=== PATIENT | male | born 1970 | race Caucasian/White ===

== ENCOUNTER 2018-02-19 19:51 | Emergency (ER) | payer SELFPAY ==
[~2018-02-19] VITALS: Ht 175.3 cm; Wt 139.4 kg
[2018-02-19 20:08] VITALS: BP 134/94
[2018-02-19 21:27] VITALS: BP 131/75
== END 2018-02-19 21:24 | disposition home or self-care (01) ==
LOC: MED 19:51
DX: M25.561 Pain in right knee (principal); M25.461 Effusion, right knee
CPT/HCPCS: 99283

== ENCOUNTER 2021-04-30 12:45 | Emergency (ER) | payer SELFPAY ==
[~2021-04-30] VITALS: Ht 175.3 cm; Wt 114.3 kg
[2021-04-30 14:05] VITALS: BP 144/64
[2021-04-30] MEDS ORDERED: KETOROLAC 30 MG/ML VIAL IM ONE (14:30)
--- NOTE | 2021-04-30 14:46 | NUR ---
PT AMBULATED TO BED
--- NOTE | 2021-04-30 14:50 | NUR ---
51 Y/O MALE BIB EX SPOUSE FROM HOME, C/O 04/29 SHARP LOWER BACK PAIN FOR 3 DAYS, PAIN INCREASING SINCE THEN. DENIES ANY INJURY, STATES HE WAS BENDING OVER TOWARDS HIS SHOES AND STARTED HAVING PAIN. DENIES PROBLEMS WITH URINATION; DENIES HEMATURIA OR DYSURIA. A&OX4, VSS. PMH: DM2 NKA MED: DENIES
[2021-04-30] MEDS ORDERED: LIDO1ADH47 TP (15:51)
[2021-04-30] MEDS ORDERED: METH-1681 PO (15:51)
[2021-04-30] MEDS ORDERED: NAPR-54 PO (15:51)
--- NOTE | 2021-04-30 16:00 | NUR ---
Patient discharged with v/s stable. Written and verbal after care instructions given and explained. Patient alert, oriented and verbalized understanding of instructions. Ambulatory with steady gait. All questions addressed prior to discharge. ID band removed. Patient advised to follow up with PMD. Rx of LIDOCAINE, ROBAXIN, NAPROXEN given. Patient educated on indication of medication including possible reaction and side effects. Opportunity to ask questions provided and answered.
== END 2021-04-30 16:00 | disposition home or self-care (01) ==
LOC: MED 12:45
DX: S39.012A Strain of muscle, fascia and tendon of lower back, initial encounter (principal); X58.XXXA Exposure to other specified factors, initial encounter; Y92.89 Other specified places as the place of occurrence of the external cause; Y93.89 Activity, other specified; Y99.8 Other external cause status
CPT/HCPCS: 81002; 96372; 99283; J1885

== ENCOUNTER 2022-07-08 18:13 | Emergency (ER) | payer SELFPAY ==
[~2022-07-08] VITALS: Ht 175.3 cm; Wt 108.9 kg
[~2022-07-08 18:13] MED LIST: LIDO1ADH47 TP; METH-1681 PO; NAPR-54 PO
[2022-07-08 18:56] VITALS: BP 137/84
--- NOTE | 2022-07-08 18:58 | NUR ---
PT AMBULATED TO LOBBY. URINE COLLECTED
--- NOTE | 2022-07-08 20:15 | NUR ---
Dr. De Santiago examining patient.
--- NOTE | 2022-07-08 21:31 | NUR ---
PT RETURN FROM ULTRASOUND
[2022-07-08 21:54] LABS: APPEARANCE,URINE CLEAR (CLEAR); BILIRUBIN,URINE NEGATIVE (NEGATIVE); BLOOD, URINE NEGATIVE (NEGATIVE); COLOR,URINE YELLOW (YELLOW); LEUKOCYTE ESTERASE ,URINE NEGATIVE (NEGATIVE); NITRITE, URINE NEGATIVE (NEGATIVE); UGLUCOSE 3+ (NEGATIVE)
[2022-07-08] MEDS ORDERED: IBUP-2213 PO (22:57)
[2022-07-08 23:10] VITALS: BP 129/84
== END 2022-07-08 23:10 | disposition home or self-care (01) ==
LOC: MED 18:13
DX: I86.1 Scrotal varices (principal)
CPT/HCPCS: 76870; 81003; 87491; 99284; Q0092